=== PATIENT | female | born 1990 | race Two or more races ===

== ENCOUNTER 2018-04-18 16:12 | Emergency (ER) | payer MEDICAID, SELFPAY ==
[~2018-04-18] VITALS: Ht 154.9 cm; Wt 78.0 kg
[2018-04-18 16:54] VITALS: BP 179/114
== END 2018-04-18 17:33 | disposition home or self-care (01) ==
LOC: ED 17:27
DX: S93.492A Sprain of other ligament of left ankle, initial encounter (principal); I10 Essential (primary) hypertension; X50.1XXA Overexertion from prolonged static or awkward postures, initial encounter; Y93.89 Activity, other specified; Y92.098 Other place in other non-institutional residence as the place of occurrence of the external cause; Y99.8 Other external cause status
CPT/HCPCS: 99284